=== PATIENT | female | born 1945 | race Caucasian/White ===

== ENCOUNTER → 2021-03-19 09:48 | Outpatient (CLI) | payer MEDICARE, OTHER, SELFPAY ==
--- NOTE | ~2021-03-19 | CT_ITS ---
EXAMINATION: CT brain wo con EXAM DATE: 03/19/2021 10:09 INDICATION: R42 - Dizziness and giddiness . TECHNIQUE: Spiral CT of the head was performed without contrast. Axial, coronal and sagittal images were reviewed. The dose-length product (DLP) for this examination was 599.57 mGy-cm. The exposure w as tailored according to patient size, and iterative reconstruction (ASIR) was used as additional dos e reduction technique. There is no prior study for comparison. FINDINGS: There is no acute intraparenchymal hemorrhage. No evidence of intraparenchymal brain mass lesion. No evidence of acute infarction. Please note that initial head CT has limited sensitivity f or small or acute infarctions. There is mild periventricular and subcortical hypodensity, nonspecific but probably related to small vessel ischemic disease. There is mild prominence of the sulci and v entricles related to cerebral atrophy. There is intracranial carotid arteriosclerosis. There are n o extra-axial collections. There is no mass effect or midline shift. The orbits are unremarkable. Soft tissue is unremarkable. The visualized sinuses and mastoid air cells are well aerated. IMPRESSION: 1. No acute intracranial findings. 2. Chronic age related findings. Reviewed, dictated and finalized at location B.
== END ==
PROVIDERS: PCP Internal Medicine; Visit Provider Internal Medicine
DX: R42 Dizziness and giddiness (principal); F48.8 Other specified nonpsychotic mental disorders
CPT/HCPCS: 70450

== ENCOUNTER 2024-01-01 00:15 | Day surgery (SDC) | payer MEDICARE, OTHER, SELFPAY ==
[2023-12-05 14:03] VITALS: BMI 24.9
--- NOTE | 2023-12-29 11:09 | SUR.PREOP ---
Patient called regarding upcoming procedure. Voicemail left regarding appointment times.
--- NOTE | 2023-12-29 13:30 | PM.HPGS ---
History of Present Illness History of Present Illness Consent: Risks, benefits, and alternatives have been discussed and questions answered. Patient agrees to proceed with procedure. Chief complaint: neoplasm screening Narrative: Rachelle Summers is a 78 year old female Referred for colon cancer screening. Review of Systems Review of Systems: All systems reviewed & are unremarkable except as noted in HPI and below PMFSH Past Medical History Medical History Breast cancer, left Cancer of breast Deviated septum Encounter for routine adult health examination without abnormal findings Encounter for vitamin deficiency screening Hormone replacement therapy (HRT) Screening for cardiovascular condition Screening for lipid disorders Screening for other and unspecified deficiency anemia Tonsillectomy planned Surgical History Surgical History H/O mastectomy History of lumpectomy Family History Family History Father Family history of glaucoma Mother Breast cancer Sibling Diabetes mellitus Dupuytren contracture Sibling Hyperlipidemia Depression Social History Social History Smoking status: Never smoker Alcohol intake: never Substance use: never Substance use type: does not use Lack of Transportation: No Lack of Food: Never True Current Housing: I Have Housing Concerned About Future Housing: No Difficulty Paying Gas/Electric Bills: No Difficulty Paying for Meds: No Currently Unemployed: No Education: Master's Degree or Higher Difficulty w/ Childcare or Family Care: No Meds Home Medications and Allergies Home Medications Medication Instructions Recorded Confirmed Type omega 1-wgm-ohv-fish oil 500 mg 1 cap PO BID 11/08/19 01/01/24 History (200mg-300mg)-1,000 mg capsule vitamin E succinate 268 mg (400 450 mg PO DAILY 11/20/20 01/01/24 History unit) tablet cholecalciferol (vitamin D3) 50 50 mcg PO DAILY 12/14/21 01/01/24 History mcg (2,000 unit) capsule qlrsjqjx-psch-evpu 8 mg-folic 400 1 tablet PO DAILY 12/14/21 01/01/24 History mcg-K 50 mcg-lutein 300 mcg tablet (Multivitamin Women 50 Plus) calcium citrate 250 mg PO DAILY 01/03/23 01/01/24 History fluticasone propionate 50 1 spray intranasal DAILY 01/03/23 01/01/24 History mcg/actuation nasal spray,suspension bupropion HCl 200 mg tablet,12 hr 200 mg PO DAILY #90 tabs 07/11/23 01/01/24 Rx sustained-release escitalopram oxalate 20 mg tablet 20 mg PO DAILY #90 tabs 07/11/23 01/01/24 Rx (Lexapro) atorvastatin 10 mg tablet (Lipitor) 10 mg PO DAILY #90 tabs 01/01/24 01/01/24 Rx Allergies Allergy/AdvReac Type Severity Reaction Status Date / Time No Known Allergies Allergy Verified 01/01/24 09:17 Exam Const: General: alert Orientation/consciousness: patient oriented x3 Resp: Auscultation: clear to auscultation bilaterally Cardio: Rhythm: regular rhythm GI: GI Palp: Yes Soft to palpation and No Tenderness to palpation present (GI) Neuro: General: patient oriented x3 Assessment and Plan Assessment and plan (1) Screening for colon cancer: Code(s): Z12.11 - Encounter for screening for malignant neoplasm of colon Status: Acute Assessment and Plan: Colonoscopy with possible biopsy or polypectomy or cautery or injection of substances.
[2024-01-01 09:19] VITALS: BP 126/70; PULSE 68; RESP 16; TEMP 36.3; O2SAT 98
[2024-01-01] MEDS: LACTATED RINGERS 1,000 ML 150 ML IV CONT (09:36)
--- NOTE | 2024-01-01 09:56 | WPDANESEPPF ---
Anes - Initial Pre Proc Eval Procedure: Operation Date: 01/01/24 10:30 Proposed Procedures p Screening Colonoscopy - Eber Atkins MD Date/Time: 01/01/24 09:56 Surgeon: Eber Atkins MD Pre Op Diagnosis: neoplasm screening Patient Data Age: 78 Gender: F Height: 1.7 m Weight: 69.3 kg Last Vital Signs Temp 97.3 F L 01/01/24 09:19 Pulse 68 01/01/24 09:19 Resp 16 01/01/24 09:19 BP 126/70 01/01/24 09:19 Pulse Ox 98 01/01/24 09:19 O2 Del Method Room Air 01/01/24 09:19 Allergies Allergy/AdvReac Type Severity Reaction Status Date / Time No Known Allergies Allergy Verified 01/01/24 09:17 Home Medications Medication Instructions Recorded Confirmed Type omega 3-tgz-fwc-fish oil 500 mg 1 cap PO BID 11/08/19 01/01/24 History (200mg-300mg)-1,000 mg capsule vitamin E succinate 268 mg (400 450 mg PO DAILY 11/20/20 01/01/24 History unit) tablet cholecalciferol (vitamin D3) 50 50 mcg PO DAILY 12/14/21 01/01/24 History mcg (2,000 unit) capsule rhmlkmdp-spva-ohcu 8 mg-folic 400 1 tablet PO DAILY 12/14/21 01/01/24 History mcg-K 50 mcg-lutein 300 mcg tablet (Multivitamin Women 50 Plus) calcium citrate 250 mg PO DAILY 01/03/23 01/01/24 History fluticasone propionate 50 1 spray intranasal DAILY 01/03/23 01/01/24 History mcg/actuation nasal spray,suspension bupropion HCl 200 mg tablet,12 hr 200 mg PO DAILY #90 tabs 07/11/23 01/01/24 Rx sustained-release escitalopram oxalate 20 mg tablet 20 mg PO DAILY #90 tabs 07/11/23 01/01/24 Rx (Lexapro) atorvastatin 10 mg tablet (Lipitor) 10 mg PO DAILY #90 tabs 01/01/24 01/01/24 Rx Patient hx anesthesia problems: none Family hx anesthesia problems: none Results Review: All pre-operative results and documents have been reviewed as part of the pre-operative evaluation. [facility] Past Medical History Medical History Breast cancer, left Cancer of breast Deviated septum Encounter for routine adult health examination without abnormal findings Encounter for vitamin deficiency screening Hormone replacement therapy (HRT) Screening for cardiovascular condition Screening for lipid disorders Screening for other and unspecified deficiency anemia Tonsillectomy planned Surgical History Surgical History H/O mastectomy History of lumpectomy Family History Family History Father Family history of glaucoma Mother Breast cancer Sibling Diabetes mellitus Dupuytren contracture Sibling Hyperlipidemia Depression Social History Social History (Updated 07/11/23 @ 09:38 by BRINDA Clifford) Smoking status: Never smoker Alcohol intake: never Substance use: never Substance use type: does not use Lack of Transportation: No Lack of Food: Never True Current Housing: I Have Housing Concerned About Future Housing: No Difficulty Paying Gas/Electric Bills: No Difficulty Paying for Meds: No Currently Unemployed: No Education: Master's Degree or Higher Difficulty w/ Childcare or Family Care: No Anes - Eval Final PreProcedure Day of Procedure 01/01/24 09:56 Patient weight: normal Heart: regular rate and rhythm Lungs: clear to auscultation Airway: Mallampati scale class II Neurological: alert and oriented Last oral intake: >/= 8 hours ASA classification: III Emergent: no Anesthetic plan: proceed Anesthesia type and monitoring: general GIVS and standard monitoring Results Review: All pre-operative results and documents have been reviewed as part of the pre-operative evaluation. Informed Consent: The patient's anesthetic plan and its attendant risks and benefits were discussed with the patient/family/POA. Questions were solicited and answers provided to the satisfaction of the patient/family/
[2024-01-01 10:29] VITALS: BP 92/51; PULSE 57; RESP 22; O2SAT 100
[2024-01-01 10:39] VITALS: BP 125/50; PULSE 58; RESP 20; O2SAT 99
[2024-01-01 10:49] VITALS: BP 120/67; PULSE 54; RESP 20; O2SAT 100
== END 2024-01-01 10:56 ==
PROVIDERS: PCP Nurse Practitioner; Visit Provider Internal Medicine Gastroenterology
PROC: 0DJD8ZZ Inspection of Lower Intestinal Tract, Via Natural or Artificial Opening Endoscopic (ICD-10-PCS; CPT 45378; principal; 2024-01-01 10:30)
DX: Z12.11 Encounter for screening for malignant neoplasm of colon (principal); Z85.3 Personal history of malignant neoplasm of breast
CPT/HCPCS: G0105; J2704; J7120